=== PATIENT | female | born 1995 | race African-American/Black ===

== ENCOUNTER 2018-08-14 11:35 | Inpatient (IN) | payer OTHER ==
[~2018-08-14] VITALS: Ht 166.4 cm; Wt 103.0 kg
[2018-08-14] MEDS ORDERED: MISOPROSTOL 200 MCG TAB PR PRN (13:00)
[2018-08-14] MEDS ORDERED: BUTORPHANOL 1 MG INJ IV PRN (13:00)
[2018-08-14] MEDS ORDERED: OXYTOCIN 30 UNITS/LR 500 ML IV PRN (13:00)
[2018-08-14] MEDS ORDERED: LIDOCAINE 1% (MPF) 30 ML INJ INJ PRN (13:00)
[2018-08-14] MEDS ORDERED: OXYCODONE/ASPIRIN (4.88/325) TAB PO PRN (13:00)
[2018-08-14] MEDS ORDERED: IBUPROFEN 600 MG TAB PO PRN (13:00)
[2018-08-14] MEDS ORDERED: METHYLERGONOVINE 0.2 MG INJ IM PRN (13:00)
[2018-08-14] MEDS ORDERED: OXYTOCIN 30 UNITS/LR 500 ML IV SCH ×2 (13:00)
[2018-08-14] MEDS ORDERED: CARBOPROST 250 MCG INJ IM PRN (13:00)
[2018-08-14 13:05] VITALS: Ht 166.4 cm; Wt 103.0 kg
[2018-08-14 13:07] VITALS: BP 114/57; PULSE 88; RESP 18
[2018-08-14] MEDS ORDERED: PREN-19 PO (13:11)
[2018-08-14] MEDS ORDERED: MISOPROSTOL 50 MCG CAPSULE VAG SCH (16:00)
[2018-08-14] MEDS: LACTATED RINGER'S 1,000 ML IV SCH ×2 (16:36→20:57)
[2018-08-14] MEDS: MISOPROSTOL 100 MCG TAB VAG SCH (21:24)
[2018-08-15] MEDS: MISOPROSTOL 100 MCG TAB VAG SCH ×4 (03:37→16:21)
[2018-08-15] MEDS: LACTATED RINGER'S 1,000 ML IV SCH ×3 (05:48→22:20)
--- NOTE | 2018-08-15 18:07 | HP ---
Date/Time of Note Date/Time of Note DATE: 08/15/18 TIME: 17:46 OB - History Hx of Present Free Text/Dictation 23 y.o A1 sent from [facility] for 2nd trimeser IOL for demise which was confirmed by perinatalogist on 08/14/18. CVL was 3.0 size 14w4d with no cardiac activities also recommended to have test for chromosome analysis on product s of conception and blood test for alupus anticoagulant,anticardiolipin antibody and beta glycoprotein 1 , free T4 and TSH , blood glucose, HbA1C. admitted for IOL for demiise. add: marijuana positive sickle cell neg Chief Complaint: IOL for demise Estimated Due Date: Feb 01, 2019 : 2 Para: 0 Spontaneous : 0 Therapeutic : 1 Care: Good Care Ultrasounds: Other (14w4d with no cardiac activities) Obstetrical Complications: None Medical Complications: None Past Family/Social History * Past Medical, Surgical, Family and Obstetric Histories reviewed from chart. Blood Type: O+ Rubella: immune RPR/VDRL: Positive (titer 1:2) GBS Status: Unknown HBsAG: Negative OB Admission Exam Vital Signs Vital Signs Vital Signs Date Temp Pulse Resp B/P (MAP) Pulse Ox O2 O2 Flow FiO2 Time Delivery Rate 08/14/18 98.8 88 18 114/57 Room Air 13:07 (76) Physical Exam HEENT: WNL Heart: Rhythm Normal Lungs: Clear, Equal Abdomen: WNL Extremities: Normal Reflexes: Normal Cervical Dilatation: None Effacement: 0% Station: -3 Membranes: Intact Amniotic Fluid: Unevaluable Last 72 hours Lab Results CBC & BMP 08/14/18 12:50 08/14/18 18:02 Hemoglobin A1C Test 08/14/18 18:10 Hemoglobin A1c 5.3 OB Assessment/Plan Reason for admission: induction of labor, IUFD (at 15w4d size 14w4d) Plan: Induction Induction Method: per Misoprostol Protocol KAREN ROE MD Aug 15, 2018 18:01
--- NOTE | 2018-08-15 18:14 | QN ---
Documentation Comment 6th cytotec 300mcg inserted cervix softened patient is c/o cramping pain not enough to seek pain reliever KAREN ROE MD Aug 15, 2018 18:14
[2018-08-15] MEDS: MISOPROSTOL 200 MCG TAB VAG PRN (20:44)
[2018-08-16] MEDS: MISOPROSTOL 200 MCG TAB VAG PRN (03:33)
[2018-08-16] MEDS: BUTORPHANOL 2 MG INJ IV PRN ×2 (10:41→18:05)
[2018-08-16] MEDS: DINOPROSTONE 20 MG VAG SUPP VAG PRN ×2 (12:29→18:06)
--- NOTE | 2018-08-16 17:23 | QN ---
Documentation Comment This is a patient of . I see the patient as requested by Nurses. 15 wks GA s/p cytotc Cx 2cm receiving Prostin,Mild CTXs -->Continue prostin, --->management as per -->Patient is signed out to SHARRI Dominguez M.D. Aug 16, 2018 17:23
[2018-08-16] MEDS: LACTATED RINGER'S 1,000 ML IV SCH (18:09)
[2018-08-16] MEDS ORDERED: MISOPROSTOL 200 MCG TAB SL STA (23:13)
[2018-08-17] MEDS: LACTATED RINGER'S 1,000 ML IV SCH (00:22)
[2018-08-17] MEDS ORDERED: IBUPROFEN 600 MG TAB PO PRN (00:30)
[2018-08-17] MEDS: MISOPROSTOL 200 MCG TAB SL PRN ×2 (03:02→06:15)
[2018-08-17] MEDS: BUTORPHANOL 2 MG INJ IV PRN (03:18)
--- NOTE | 2018-08-17 09:10 | PREAC ---
Date/Time of Note Date/Time of Note DATE: 08/17/18 TIME: 09:09 Anesthesia Eval and Record Evaluation Time Pre-Procedure Interview DATE: 08/17/18 TIME: 09:09 Age 23 Sex female NPO: 8 hrs Preoperative diagnosis retained placenta Planned procedure d&c Past Medical History Past Medical History: Includes GI: Obesity Surgery & Anesthesia Issues No known issue Meds Anticoagulation: No Beta Mateo within 24 hr: No Reason Beta Mateo not given: Pt. not on B-Mateo Reported Medications Vit #76/Iron,Carb/FA (Prenatabs Rx Tablet) 1 Each Tablet, 1 EACH PO DAILY, TAB 08/14/18 Current Medications Lactated Ringer's 1,000 ml @ 125 mls/hr Q8H IV Last administered on 08/17/18at 00:22; Admin Dose 125 MLS/HR; Start 08/14/18 at 12:59 Butorphanol Tartrate (Stadol) 1 mg Q2H PRN IV .PAIN; Start 08/14/18 at 13:00 Butorphanol Tartrate (Stadol) 2 mg Q2H PRN IV .PAIN Last administered on 08/17/18at 03:18; Admin Dose 2 MG; Start 08/14/18 at 13:00 Lidocaine (Xylocaine 1% (Mpf)) 30 ml ONCE PRN INJ .EPISIOTOMY; Start 08/14/18 at 13:00 Oxytocin/Lactated Ringer's 500 ml @ 500 mls/hr ONCE POST IV Last administered on 08/17/18at 08:17; Admin Dose 500 MLS/HR; Start 08/14/18 at 13:00 Oxytocin/Lactated Ringer's 500 ml @ 125 mls/hr POST IV ; Start 08/14/18 at 13:00 Ibuprofen (Motrin) 600 mg ONCE PRN PO .PAIN 1-5 Last administered on 08/17/18at 00:22; Admin Dose 600 MG; Start 08/14/18 at 13:00 Oxycodone/Aspirin (Percodan) 2 tab ONCE PRN PO .PAIN 6-10; Start 08/14/18 at 13:00 Oxytocin/Lactated Ringer's 500 ml @ 0 mls/hr ONCE PRN IV .VAGINAL BLEEDING; Start 08/14/18 at 13:00 Methylergonovine Maleate (Methergine) 0.2 mg ONCE PRN IM .VAGINAL BLEEDING; Start 08/14/18 at 13:00 Carboprost Tromethamine (Hemabate) 250 mcg ONCE PRN IM .VAGINAL BLEEDING; Start 08/14/18 at 13:00 Misoprostol (Cytotec) 1,000 mcg ONCE PRN MN .VAGINAL BLEEDING; Start 08/14/18 at 13:00 Misoprostol (Cytotec) 300 mcg Q4H VAG Last administered on 08/15/18at 16:21; Admin Dose 300 MCG; Start 08/14/18 at 21:00 Misoprostol (Cytotec) 400 mcg Q6 PRN VAG LABOR INDUCTION Last administered on 08/16/18at 03:33; Admin Dose 400 MCG; Start 08/15/18 at 19:30 Dinoprostone (Prostin E2 Vaginal Supp) 20 mg Q4H PRN VAG LABOR INDUCTION Last administered on 08/16/18at 18:06; Admin Dose 20 MG; Start 08/16/18 at 09:00 Misoprostol (Cytotec) 400 mcg Q3 PRN SL INDUCTION Last administered on 08/17/18at 06:15; Admin Dose 400 MCG; Start 08/17/18 at 03:00 Ibuprofen (Motrin) 600 mg Q6H PRN PO PAIN LEVEL 1-5; Start 08/17/18 at 00:30 Meds reviewed: Yes Allergies Coded Allergies: No Known Allergies (Verified Allergy, Unknown, 08/14/18) Allergies Reviewed: Yes Labs/Studies Labs Reviewed: Reviewed by anesthesiologist Result Diagram: 08/14/18 1250 08/14/18 1802 test: N/A Pre-procedure Exam Last vitals Vital Signs Date Temp Pulse Resp B/P (MAP) Pulse Ox O2 O2 Flow FiO2 Time Delivery Rate 08/14/18 98.8 88 18 114/57 Room Air 13:07 (76) Airway: Adequate mouth opening, Adequate thyromental dist Mallampati: Mallampati III Teeth: Normal Lung: Normal Heart: Normal ASA Physical Status ASA physical status: 2 Emergency: None Pre-operative Attestations Prior to commencing anesthesia and surgery, the patient was re-evaluated, there was verification of: *The patient's identity *The results of appropriate recent lab work and preoperative vital signs *The above evaluation not changing prior to induction *Anesthetic plan, risk benefits, alternative and complications discussed with patient/family; questions answered; patient/family understands, accepts and wishes to proceed. FLORENTIN JEAN DO Aug 17, 2018 09:10
[2018-08-17] MEDS ORDERED: MIDAZOLAM 1 MG/ML 2 ML INJ ONE ×2 (09:14)
[2018-08-17] MEDS ORDERED: CEFAZOLIN 1 GM INJ ONE (09:26)
[2018-08-17] MEDS ORDERED: HYDROmorphONE 1 MG/5 ML IV SYRINGE IV PRN ×2 (09:30)
--- NOTE | 2018-08-17 09:40 | LDN ---
Date/Time of Note Date/Time of Note DATE: 08/17/18 TIME: 09:38 Delivery Summary 15 wks GA demise Episiotomy: No Estimated blood loss: 200 Sponge & Needle done & correct: Yes All needle counts correct: Yes Any foreign bodies felt in the: No Mother & Baby Disposition Disposition 15 wks demise will be transferred to OR Retained placenta --->patient is taken to OR for further evaluation SHARRI SANTOS M.D. Aug 17, 2018 09:40
--- NOTE | 2018-08-17 11:43 | OPR ---
DATE OF OPERATION: 08/17/2018 PREOPERATIVE DIAGNOSIS: Retained placenta. POSTOPERATIVE DIAGNOSIS: Retained placenta. OPERATION PERFORMED: D and C and suction. ATTENDING SURGEON: Matt Spears MD ANESTHESIOLOGIST: Dr. Whitman. ESTIMATED BLOOD LOSS: 20 mL. COMPLICATIONS: None. TECHNIQUE: The patient was taken to the operating room where spinal anesthesia was found to be adequ ate. The patient was placed in dorsal lithotomy position. After prep and drape, a weighted speculum was placed inside the vaginal cavity anterior lip of the cervix was grasped using the tenaculum. Perera ction size 12 was inserted. Placenta was grasped using sponge forceps and removed. Sharp curettage of endometrial cavity was done. Intrauterine cavity was suctioned again using a suction size tool. Hemostasis achieved. Instruments removed. Patient tolerated the procedure well and was transferred to recovery room in stable condition. There was no complication regarding this surgery. Dictated By: MATT PULIDO/EITAN Conf#: [id number] DID#: [id number] CC: KAMILLE ROE MD;*EndCC*
[2018-08-17] MEDS ORDERED: OXYTOCIN 30 UNITS/LR 500 ML IV SCH (18:14)
--- NOTE | 2018-08-17 18:20 | QN ---
Documentation Comment she is doing well.She desires to get discharged PE VS stable Gen NAD And soft NT ND Genitalia No blood at perineum --->Discharge with precautions -->Questions answered Follow up with her provider SHARRI SANTOS M.D. Aug 17, 2018 18:20
--- NOTE | 2018-08-17 18:21 | DS ---
Date/Time of Note Date/Time of Note DATE: 08/17/18 TIME: 18:21 Discharge Summary Admission/Discharge Info Admit Date/Time Aug 14, 2018 at 11:35 Discharge Date/Time 08/17/2018 Discharge Diagnosis Patient Condition: Good Hospital Course uneventful Home Meds Discontinued Reported Medications Vit #76/Iron,Carb/FA (Prenatabs Rx Tablet) 1 Each Tablet, 1 EACH PO DAILY, TAB 08/14/18 Primary Care Provider Care Physician No Primary Pending Labs Laboratory Tests Test 08/17/18 06:12 08/17/18 17:14 Lab Scanned Report [facility] [id number] White Blood Count 10.8 10^3/ul (4.8-10.8) Red Blood Count 4.06 10^6/ul (4.20-5.40) Hemoglobin 11.3 g/dl (12.0-16.0) Hematocrit 34.0 % (37.0-47.0) Mean Corpuscular Volume 83.7 fl (82.0-101.0) Mean Corpuscular Hemoglobin 27.8 pg (29.0-33.0) Mean Corpuscular 33.2 g/dl (32.0-37.0) Hemoglobin Concent Red Cell Distribution Width 12.6 % (11.5-14.5) Platelet Count 265 10^3/UL (140-415) Mean Platelet Volume 9.3 fl (7.4-10.4) Immature Granulocytes % 0.300 % (0.001-0.429) Neutrophils % 61.2 % (39.0-77.0) Lymphocytes % 28.1 % (15.0-51.0) Monocytes % 9.1 % (0.0-11.0) Eosinophils % 1.0 % (0.0-7.0) Basophils % 0.3 % (0.0-2.0) Nucleated Red Blood Cells % 0.0 /100WBC (0.0-0.0) Immature Granulocytes # 0.030 10^3/ul (0.0-0.031) Neutrophils # 6.6 10^3/ul (1.6-7.5) Lymphocytes # 3.0 10^3/ul (0.8-2.9) Monocytes # 1.0 10^3/ul (0.3-0.9) Eosinophils # 0.1 10^3/ul (0.0-0.5) Basophils # 0.0 10^3/ul (0.0-0.1) Nucleated Red Blood Cells # 0.0 10^3/ul (0.0-0.0) SHARRI SANTOS M.D. Aug 17, 2018 18:21
[2018-08-17] MEDS ORDERED: METHYLERGONOVINE 0.2 MG INJ IM PRN (18:30)
[2018-08-17] MEDS ORDERED: OXYTOCIN 30 UNITS/LR 500 ML IV PRN (18:30)
[2018-08-17] MEDS ORDERED: DIPHENHYDRAMINE 50 MG INJ IV PRN (18:30)
[2018-08-17] MEDS ORDERED: NACL 0.9% 3 ML SYG IV SCH (18:30)
[2018-08-17] MEDS ORDERED: ZOLPIDEM 5 MG TAB PO PRN (18:30)
[2018-08-17] MEDS ORDERED: ONDANSETRON 4 MG INJ IV PRN (18:30)
[2018-08-17] MEDS ORDERED: OXYCODONE/ASPIRIN (4.88/325) TAB PO PRN (18:30)
[2018-08-17] MEDS ORDERED: MISOPROSTOL 200 MCG TAB PR PRN (18:30)
[2018-08-17] MEDS ORDERED: DIPHENHYDRAMINE 25 MG CAP PO PRN (18:30)
[2018-08-17] MEDS ORDERED: SENNA/DOCUSATE NA (8.6MG/50MG) TAB PO PRN (18:30)
[2018-08-17] MEDS ORDERED: CARBOPROST 250 MCG INJ IM PRN (18:30)
[2018-08-17] MEDS ORDERED: WITCH HAZEL/GLYCERIN PAD PR PRN (18:30)
[2018-08-17] MEDS ORDERED: IBUPROFEN 600 MG TAB PO SCH (18:30)
[2018-08-17] MEDS ORDERED: SENNA/DOCUSATE NA (8.6MG/50MG) TAB PO SCH (21:00)
[2018-08-19] MEDS ORDERED: DIPHTH/TET/ACEL PERTUSS (ADULT) 0.5 ML VIAL IM* ONE (09:00)
== END 2018-08-17 18:25 | disposition home or self-care (01) | DRG 779 ==
LOC: L-D 11:35
PROVIDERS: ADMIT Obstetrics & Gynecology; ATTEND Obstetrics & Gynecology
PROC: 3E0P7VZ Introduction of Hormone into Female Reproductive, Via Natural or Artificial Opening (ICD-10-PCS; 2018-08-14)
PROC: 10D17Z9 Manual Extraction of Products of Conception, Retained, Via Natural or Artificial Opening (ICD-10-PCS; principal; 2018-08-17)
DX: O02.1 Missed abortion (principal)
CPT/HCPCS: 80307; 82947; 83036; 84439; 84443; 85025; 85610; 85613; 85730; 86147; 86592; 86850; 86900; 86901; 88307; J0595; J0690; J2250; J2590; J7120